=== PATIENT | female | born 1945 | race Caucasian/White ===

== ENCOUNTER 2022-03-04 11:47 | Emergency (ER) | payer MEDICARE, SELFPAY ==
--- NOTE | ~2022-03-04 | XR_ITS ---
EXAMINATION: XR HAND/WRIST, LEFT CLINICAL INFORMATION: Fall COMPARISON: None TECHNIQUE: 4 views of the left wrist. FINDINGS: There is arthritis at the first CUSTODIAL joint. There is arthritis at the radiocarpal joint. There is arthritis at the capitate lunate. There is disruption of the proximal and distal carpal rows with proximal migration of the capitate. There is abnormal scapholunate alignment. There is dorsal tilt of the lunate seen on the lateral view. There is abnormal appearance of the scaphoid bone and it is difficult to exclude fracture or perilunate dislocation. There is chondrocalcinosis in the region of the triangular fibrocartilage complex. There is increased soft tissue attenuation questionable for chondrocalcinosis or changes related to old trauma adjacent to the triquetrum and pisiform. There is soft tissue swelling about the wrist. XR/XR hand wrist LT IMPRESSION: Degenerative changes at the first CUSTODIAL, radiocarpal and capitate lunate joints. Chondrocalcinosis. 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 Abnormal appearance to the scaphoid bone and it is difficult to exclude scaphoid fracture and perilunate dislocation. Follow-up wrist CT scan should be considered.
[2022-03-04 14:41] VITALS: BP 165/70; PULSE 64; RESP 19; TEMP 36.6; O2SAT 98; BMI 37.3
--- NOTE | 2022-03-04 15:49 | ED.EXTPRO ---
HPI - Extremity Problem General Chief complaint: Extremity Injury, Upper Stated complaint: swollen pain left hand / wrist Time Seen by Provider: 03/04/22 12:53 Source: patient Mode of arrival: ambulatory Limitations: no limitations History of Present Illness HPI Narrative: 76-year-old female who is left-hand dominant presents with left hand pain and swelling after a mechanical fall on Friday. Patient went to Urgent Care and had x-rays that reportedly were normal. She was placed in a fiberglass splint and told to follow-up with her primary care. Patient tells me she did not get orthopedic follow-up. She has had continued pain and swelling despite using the splint and elevating. No numbness or tingling, redness or warmth or fever. Related Data Previous Rx's Medication Instructions Recorded tramadol 50 mg tablet 50 mg PO BID PRN pain #10 tabs 03/04/22 Allergies Allergy/AdvReac Type Severity Reaction Status Date / Time Unable to Assess Allergy Verified 03/04/22 17:00 Review of Systems Review of Systems: Yes all other systems are reviewed and are negative Constitutional: Constitutional: Reports no additional constitutional complaints, Denies body ache(s), Denies chills, Denies fever(s), Denies headache(s) and Denies weakness Eyes: Eyes: Reports no additional eye complaints and Denies change in vision ENT: Reports system reviewed and no additional complaints, except as documented, Denies dizziness, Denies headache(s), Denies nasal congestion, Denies nasal discharge and Denies neck pain Cardiovascular: Cardiovascular: Reports no additional cardiovascular complaints, Denies chest pain, Denies leg edema and Denies dyspnea Respiratory: Respiratory: Reports no additional respiratory complaints, Denies cough and Denies dyspnea Gastrointestinal: Gastrointestinal: Reports no additional gastrointestinal complaints, Denies abdominal pain, Denies diarrhea, Denies nausea and Denies vomiting Genitourinary: Genitourinary: Reports no additional female genitourinary complaints and Denies urinary incontinence Musculoskeletal: Musculoskeletal: Reports no additional musculoskeletal complaints, Denies back pain, Reports arthralgias, Reports joint swelling, Reports limited range of motion, Denies neck pain, Denies numbness and Denies tingling Integumentary/Breasts: Skin/Breast: Reports system reviewed and no additional complaints, except as docu and Denies rash Neurologic: Reports system reviewed and no additional complaints, except as documented, Denies Abnormal speech present, Denies dizziness, Denies headache(s), Denies numbness, Denies tingling and Denies weakness PMFSH Past Medical History Attestation statement: The following information was validated with the patient. Source: old records reviewed and nursing notes reviewed Social History Social History Advance Directives: Yes Advance Directives Information Provided: No Advance Directives on File: No Physical Exam Vital Signs: Vital Signs: Last Vital Signs Temp 98 F 03/04/22 14:41 Pulse 64 03/04/22 14:41 Resp 19 03/04/22 14:41 BP 165/70 H 03/04/22 14:41 Pulse Ox 98 03/04/22 14:41 O2 Del Method 03/04/22 14:41 BMI result Body Mass Index 37.3 Const: General: cooperative, healthy appearing, comfortable and no acute distress Orientation/consciousness: patient oriented x3 Limitations: no limitations HEENT: Head: Yes normal to inspection Ears: hearing grossly normal bilaterally General nose exam: Normal external nose present Face and sinus: Yes normal facial exam Mouth: Normal oral and palatal mucosa present Throat: Yes posterior oropharynx normal Eyes: General: appearance normal, both eyes and all related structures Pupils: Equal, round and reactive pupils present Neck: Neck: Yes normal visual inspection Chest: Chest palpation & inspection: normal inspection of the chest Resp: Effort & Inspection: normal respiratory effort Auscultation: clear to auscultation bilaterally Cardio: Rate: regular rate Rhythm: regular rhythm Peripheral pulses: Peripheral pulses 2+ throughout GI: Inspection: Yes normal to inspection Palpation (GI): Soft to palpation and nontender Auscultation: normal bowel sounds Back/Spine/Pelvis: Thoracic/Lumbar Spine: thoracic and lumbar spine normal to inspection Skin: General skin exam: no rashes or lesions noted Neuro: General: patient oriented x3, no focal motor deficits and normal sensation to monofilament Cranial nerves: Yes Equal, round and reactive pupils present Cognition (Neuro): normal cognition Speech: No Abnormal speech present Gait exam (Neuro): Normal gait present Motor exam (neuro): 5/5 motor strength present throughout Extrem: Other: To the left dorsal hand there is swelling/tenderness and pain with flexion of the wrist. No snuffbox tenderness Full range of motion of the hand No obvious warmth or redness Neurovascular intact distally Course Course Course Narrative: x-ray shows possible scaphoid fracture. Recommend additional imaging with CT. Patient placed in a thumb spica splint. Will have her follow-up with orthopedics outpatient. Reviewed rice. Reviewed worrisome signs and symptoms of when to return to the emergency department. Comfortable discharge home. MDM - Extremity (Nontraumatic) MDM Narrative Medical decision making narrative: 76-year-old female left-hand dominant here with reports of continued left hand pain and swelling despite having a fiberglass splint after urgent care visit this weekend and elevating the extremity. Will repeat x-rays as no available x-rays here for review Medical Records Attestation: I reviewed the patient's medical records. Lab Data Attestation: I reviewed the patient's lab results. Imaging Data hand/wrist xray: Attestation: I personally reviewed and interpreted this imaging study as follows: Radiologist's impression: [place] [id number] XRay Report Signed Patient: Savana Mccoy MR#: [id number] : 1945 Acct:[id number] Age/Sex: 76 / F ADM Date: 03/04/22 Loc: HO.ED Attending Dr: Ordering Physician: Abbie Geiger MD Date of Service: 03/04/22 Procedure(s): XR hand wrist LT Accession Number(s): [id number] cc: Abbie Geiger MD~ EXAMINATION: XR HAND/WRIST, LEFT CLINICAL INFORMATION: Fall? COMPARISON: None? TECHNIQUE: 4 views of the left wrist.? FINDINGS: There is arthritis at the first SENIOR CARE joint. There is arthritis at the radiocarpal joint. There is arthritis at the capitate lunate. There is disruption of the proximal and distal carpal rows with proximal migration of the capitate. There is abnormal scapholunate alignment. There is dorsal tilt of the lunate seen on the lateral view. There is abnormal appearance of the scaphoid bone and it is difficult to exclude fracture or perilunate dislocation. There is chondrocalcinosis in the region of the triangular fibrocartilage complex. There is increased soft tissue attenuation questionable for chondrocalcinosis or changes related to old trauma adjacent to the triquetrum and pisiform. There is soft tissue swelling about the wrist.? XR/XR hand wrist LT IMPRESSION: Degenerative changes at the first SENIOR CARE, radiocarpal and capitate lunate joints. Chondrocalcinosis. 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 Abnormal appearance to the scaphoid bone and it is difficult to exclude scaphoid fracture and perilunate dislocation. Follow-up wrist CT scan should be considered. Procedures Orthopedic Splinting/Casting Injury #1: Side: left Upper Extremity Injury Location: wrist Upper Extremity Immobilizer: thumb spica Additional Comments: sling Discharge Plan Discharge Clinical Impression: Fracture of scaphoid Patient Disposition: Home, Self-Care Instructions: Scaphoid Fracture (ED) Additional Instructions: Your x-ray shows a potential fracture of your scaphoid bone which is a bone in the wrist. You may need additional imaging to confirm this. We are placing you in a splint. You can call Orthopedics to follow up to be re-evaluated. The splint must stay on all times. Do not get it wet. You have a lot of swelling of her hands seem to need to elevate your hand on 3 or more pillows and use a sling with walking around Apply ice Take Tylenol for pain Prescriptions: New tramadol 50 mg tablet 50 mg PO BID PRN (Reason: pain) Qty: 10 0RF Referrals: [facility] – [place] Orthopedic Surgeons [Provider Group] Interventions: ED Discharge Assessment Last Done: 03/04/22 17:35 Discharge Date/Time: 03/04/22 17:36
== END 2022-03-04 17:36 | disposition home or self-care (01) ==
PROVIDERS: Emergency Provider Emergency Medicine
DX: S62.032A Displaced fracture of proximal third of navicular [scaphoid] bone of left wrist, initial encounter for closed fracture (principal); W01.0XXA Fall on same level from slipping, tripping and stumbling without subsequent striking against object, initial encounter; Y93.9 Activity, unspecified; Y92.9 Unspecified place or not applicable; Y99.9 Unspecified external cause status
CPT/HCPCS: 29125; 73110; 73130; 99283; 99284